=== PATIENT | male | born 1980 | race Caucasian/White ===

== ENCOUNTER 2018-05-17 16:22 | Emergency (ER) | payer SELFPAY ==
[2018-05-17] MEDS ORDERED: Bacitracin Zinc 1 Packet ONE (16:43)
[2018-05-17] MEDS ORDERED: Ondansetron ODT 4 MG TAB ONE (16:58)
[2018-05-17 17:06] LABS: #Basophils 0.2 thou/uL (0.0-0.2); #Eosinphils 0.2 thou/uL (0.0-0.7); #Lymphocytes 3.2 thou/uL (1.20-3.40); #Monocytes 0.8 thou/uL (0.11-0.59); #Neutrophils 4.4 thou/uL (1.40-6.50); %Basophils 1.8 % (0.0-1.0); %Eosinophils 1.8 % (0.0-10.0); %Lymphocytes 36.3 % (21.0-51.0); %Monocytes 9.3 % (0.0-10.0); %Neutrophils 50.8 % (42.0-75.0); Hemoglobin 16.6 g/dL (14.0-18.0); Mean Corpuscular HGB CONC 32.9 g/dL (32.0-36.0); Mean Corpuscular Hemoglobin 27.8 pg (27.0-31.0); Mean Corpuscular Volume 84.5 fL (78.0-98.0); Mean Platelet Volume 6.1 fL (7.4-10.4); Platelet Count 361 thou/uL (130-400); RBC Distribution Width 11.9 % (11.5-14.5); Red Blood Cell (RBC) Count 5.96 mill/uL (4.70-6.10); White Blood Cell (WBC) Count 8.8 thou/uL (4.8-10.8)
[2018-05-17 17:08] LABS: INR-International Normal Ratio 1.1; PTT 26.2 SEC (22.9-36.1)
[2018-05-17 17:21] LABS: ALT (SGPT) 25 U/L (8-55); AST (SGOT) 22 U/L (5-34); Albumin 4.8 g/dL (3.5-5.0); Alkaline Phosphatase 59 U/L (40-150); Anion Gap 18 mmol/L (10-20); BUN (Urea Nitrogen) 13 mg/dL (8.9-20.6); Bilirubin, Total 0.5 mg/dL (0.2-1.2); CK (CPK) 111 U/L (30-200); Calc. Creatinine Clearance 0 mL/min (70-130); Calcium 9.9 mg/dL (7.8-10.44); Carbon Dioxide 22 mmol/L (22-29); Chloride 103 mmol/L (98-107); Estimated GFR-MDRD Greater than 90; Globulin 2.9 g/dL (2.4-3.5); Glucose 79 mg/dL (70-105); Potassium 3.8 mmol/L (3.5-5.1); Protein, Total 7.7 g/dL (6.0-8.3); Sodium 139 mmol/L (136-145)
== END 2018-05-17 20:44 | disposition home or self-care (01) ==
LOC: NAV ERS 16:22
DX: T63.021A Toxic effect of coral snake venom, accidental (unintentional), initial encounter (principal)
CPT/HCPCS: 36415; 80053; 82550; 85025; 85384; 85610; 85730; 99284; Q0162